=== PATIENT | male | born 1980 | race Caucasian/White ===

== ENCOUNTER 2021-03-21 02:31 | Emergency (ER) | payer OTHER ==
[2021-03-21] MEDS ORDERED: diphenhydrAMINE 25 MG CAP ONE (02:58)
== END 2021-03-21 03:16 | disposition home or self-care (01) ==
LOC: MADERS 02:31
DX: T78.40XA Allergy, unspecified, initial encounter (principal); I50.9 Heart failure, unspecified; Z87.891 Personal history of nicotine dependence
CPT/HCPCS: 96372; 99282; J1040; Q0163